=== PATIENT | female | born 1990 | race Caucasian/White ===

== ENCOUNTER 2019-09-18 23:00 | Emergency (ER) | payer SELFPAY ==
[2019-09-18 23:05] VITALS: BP 137/101; PULSE 89; RESP 22; TEMP 36.6; O2SAT 100; BMI 53.8
--- NOTE | 2019-09-18 23:05 | ED_ITS ---
Entered by Renetta Whitehead, acting as scribe for Gladys Hawk HPI - SOB/Dyspnea General: Chief Complaint: Shortness of Breath/Dyspnea Stated Complaint: sob Time Seen by Provider: 09/18/19 23:05 Source: patient Mode of arrival: ambulatory Limitations: no limitations History of Present Illness: HPI Narrative: 29 yo f came to the er pov for shortness of breath. Onset was a week ago. Pt states that she is having a coughing, shaky, sob, sweats and chills. Pt said that this has been going on for about. MD elicited complaint: shortness of breath Onset (ago): week(s) (1 week ago) Severity: mild Exacerbating factors: nothing Relieving factors: nothing Associated symptoms: Reports cough; Deny chest pain or polyuria Treatment prior to arrival: none Related Data: Home oxygen amount: none Review of Systems General: Reports: other (negative unless marked) Const: Reports: chills and night sweats Eyes: Denies: change in vision Card: Denies: chest pain Resp: Reports: shortness of breath and productive cough : Denies: flank pain Musc: Denies: neck pain or back pain Skin/Breast: Denies: rash Neuro: Denies: headache or numbness in extremities Endo: Denies: excessive urination PFSH ED PFSH: Medical History (Updated 09/19/19 @ 00:34 by Gladys Hawk) Cellulitis Cholecystitis with cholelithiasis Seizure Surgical History (Updated 09/18/19 @ 23:32 by Renetta Whitehead) H/O oral surgery H/O rotator cuff surgery H/O shoulder surgery History of dental surgery Social History Smoking and tobacco status: never smoked Physical Exam Const: COMMON NORMALS: no apparent distress, oriented x3, no limitations, healthy appearing and well nourished EXAM LIMITATIONS: no altered mental status GENERAL APPEARANCE: cooperative, well kempt and well developed ORIENTATION/CONSCIOUSNESS: Yes awake HENMT: COMMON NORMALS: normocephalic, head/scalp atraumatic, hearing grossly normal bilaterally, external ears normal, EAC's normal, external nose normal and moist oral mucous membranes HEAD & SCALP: normal to inspection, normocephalic and atraumatic FACE & SINUS: normal facial exam and face symmetric NOSE: external nose normal and nares normal EXTERNAL EAR: Yes external ears normal EXTERNAL AUDITORY CANAL: EAC's normal MOUTH: oral and palatal mucosa normal and tongue normal Eye: COMMON NORMALS: PERRL, EOMs intact bilaterally, conjunctivae normal and no scleral icterus GENERAL EYE: normal appearance of both eyes and normal light reflex CONJUNCTIVA: Yes conjunctivae normal SCLERA: sclerae normal CORNEA: Yes corneas normal PUPIL: Yes PERRL DIRECT OPHTHALMOSCOPY: Yes normal light reflex Neck/C-Spine: COMMON NORMALS: full ROM, no lymphadenopathy, supple, no meningeal signs and no JVD GENERAL: Yes normal visual inspection and Yes trachea midline CERVICAL SPINE: Yes cervical ROM normal Chest: COMMONS NORMALS: inspection of chest normal and palpation of chest normal Resp: COMMON NORMALS: normal respiratory effort, no retractions, no use of accessory muscles and clear to auscultation bilaterally EFFORT & INSPECTION: Yes able to speak in complete sentences AUSCULTATION: clear to auscultation bilaterally Cardio: COMMON NORMALS: no JVD, regular rate, regular rhythm, S1 normal heart sound, S2 normal heart sound, no gallops, no clicks, no murmurs and no rub JUGULAR VENOUS DISTENTION: no JVD RATE: regular rate RHYTHM: regular rhythm HEART SOUNDS: S1 normal and S2 normal GI: COMMON NORMALS: soft to palpation, non-tender, no hepatosplenomegaly and no masses INSPECTION: Yes normal to inspection PALPATION: Yes soft and Yes no hepatosplenomegaly : COMMON NORMALS: Yes no CVA tenderness BLADDER/KIDNEY EXAM: Yes no CVA tenderness Back/Pelvis: COMMON NORMALS: no CVA tenderness, thoracic and lumbar spine normal to inspection, no thoracic nor lumbar tenderness and thoraco-lumbar ROM normal Extremity: COMMON NORMALS: normal to inspection, full ROM, normal capillary refill, no joint enlargement, no clubbing, cyanosis or edema and no calf tenderness Neuro: COMMON NORMALS: oriented x3, CN's II-XII intact bilaterally, moves all extremities, no focal motor deficits and no sensory deficits noted MENINGEAL SIGNS: Yes no meningeal signs Psych: COMMON NORMALS: mental status grossly normal, thought process normal, cooperative, affect normal, speech normal and activity/motor behavior normal APPEARANCE: Yes well kempt SPEECH: Yes normal speech THOUGHT PROCESS: normal thought process Skin: COMMON NORMALS: no rashes or lesions noted, skin turgor normal, no jaundice, no petechiae and no mottling GENERAL SKIN EXAM: no rashes or lesions noted and turgor normal Course Vital Signs: Vital signs: Vital Signs Temperature 97.9 F 09/18/19 23:05 Pulse Rate 89 09/18/19 23:49 Respiratory Rate 18 09/18/19 23:45 Blood Pressure 137/101 09/18/19 23:05 Pulse Oximetry 98 09/18/19 23:45 MDM - SOB/Dyspnea MDM Narrative: Medical decision making narrative: The patient has no infiltrates on chest x-ray and no fever. Per the state algorithm she does not meet criteria for COVID-19 testing. I see no sign of respiratory distress. I will send her home on treatments for bronchitis. Per the patient request we will go ahead and send the COVID-19 test to the [facility]. Lab Data: Attestation: I reviewed the patient's lab results. Labs: Lab Results 09/18/19 Range/Units 23:29 Influenza Type A A g Negative (Negative) POC Influenza B Ag Negative (Negative) Discharge Plan Discharge Patient Disposition: Home, Self-Care Clinical Impression: Bronchitis Condition: Stable Prescriptions: New Zithromax Z-Fausto 250 mg tablet See Rx Instructions .ROUTE .COMPLEX Qty: 6 RF: 0 No Action lamotrigine 200 mg Tablet 200 mg PO BID RF: 0 zonisamide 100 mg Capsule 100 mg PO BID RF: 0 primidone 250 mg Tablet 250 mg PO BID RF: 0 Discharge Orders: Discharge Order (Routine); Ordered 09/19/19 Ordered By: Gladys Hawk Referrals: Leia Brandt DO [Physician] - 1-3 days Discharge Diet: Advance as tolerated Discharge Activity: Increase activity as tolerated Patient Instructions: Bronchitis (Acute) - Adult Activity Restrictions/Additional Instructions: Please return to the ER immediately for any of the signs or symptoms listed on your discharge instruction sheets, worsening/changing of your symptoms, you are not getting better as quickly as expected, or for ANY other cause or concerns. Coding Level of Care Code ED Telecasting Engineer for Chg Fwd Exam Comprehensive The documentation recorded by the [place] shrestha Stephanie Lyn, accurately reflects the service I personally performed and the decisions made by Kenn schaffer Eli N Sep 18, 2019 23:00
--- NOTE | 2019-09-18 23:24 | XRR_ITS ---
PROCEDURE INFORMATION: Exam: XR Chest, 1 View Exam date and time: 09/19/2019 12:03 AM Age: 29 years old Clinical indication: Cough and shortness of breath; Prior surgery; Surgery date: 6+ months; Surgery type: Vns TECHNIQUE: Imaging protocol: XR of the chest Views: 1 view. COMPARISON: CR Chest 1 [place] [id number] 02/04/2019 1:31 PM FINDINGS: Lungs: There is mild indistinctness of the pulmonary vasculature and some increased interstitial markings seen predominately the lower hemithoraces, findings that could represent mild pulmonary edema. Superimposed basilar pneumonitis cannot be entirely excluded. Pleural space: Unremarkable. No pleural effusion. No pneumothorax. Heart/Mediastinum: Unremarkable. No cardiomegaly. Bones/joints: Unremarkable. Other findings: A vagus neurostimulator is seen on the left. XR/XR chest 1V portable [id number] IMPRESSION: Mild indistinctness of the pulmonary vasculature and some increased interstitial markings in the lower hemithoraces may represent pulmonary edema although superimposed basilar pneumonitis cannot be excluded.
[2019-09-18 23:45] VITALS: PULSE 89; RESP 18; O2SAT 98
[2019-09-18] MEDS: ipratropium-albuterol 3 mL Neb 9 ML INHALATION (23:45)
[2019-09-18 23:49] VITALS: PULSE 89
[2019-09-18 23:58] LABS: Influenza A by IFA Negative (Negative); Influenza B by IFA Negative (Negative)
[2019-09-19] MEDS: acetaminophen 500 mg Tablet 1000 MG PO (00:14)
[2019-09-19 01:36] VITALS: RESP 18
[2019-09-21 08:59] LABS: Coronavirus Overall Results NOT DETECTED; Coronavirus Qual PCR Source NOT GIVEN; Patient Symptomatic? NOT GIVEN; SARS-CoV-2 RNA: NEGATIVE
[2019-09-21 09:00] LABS: Pan-SARS RNA: NEGATIVE
== END 2019-09-19 01:36 | disposition home or self-care (01) ==
PROVIDERS: Emergency Provider Emergency Medicine
DX: J40 Bronchitis, not specified as acute or chronic (principal)
CPT/HCPCS: 12345; 71045; 87635; 87804; 94640; 99282; 99283

== ENCOUNTER 2019-10-11 16:04 | Emergency (ER) | payer SELFPAY | END 2019-10-11 16:15 | disposition left against medical advice (07) | LOC: ER 16:21 | DX: Z53.29 Procedure and treatment not carried out because of patient's decision for other reasons (principal); R56.9 Unspecified convulsions | CPT/HCPCS: 99281 ==

== ENCOUNTER 2020-03-22 17:47 | Emergency (ER) | payer SELFPAY ==
[2020-03-22 17:52] VITALS: BP 152/98; PULSE 79; RESP 16; TEMP 36.7; O2SAT 100; BMI 49.9
--- NOTE | 2020-03-22 18:03 | ED_ITS ---
HPI - Neuro Symptoms/Deficit General: Chief Complaint: Extremity Problem,Nontraumatic Stated Complaint: fingers tingling Time Seen by Provider: 03/22/20 18:03 History of Present Illness: HPI Narrative: Patient is a 29-year-old female who comes to the ED with left fifth digit numbness/tingling sensation. Patient says symptoms started approximately 2 to 3 days ago. Patient has a job where she uses her hands constantly and says she noticed about 3 days ago a tingling sensation of left hand. She denies any other symptoms or injury to left hand. Denies headache, head trauma, vision changes, numbness tingling to face or weakness to face, weakness to extremities. Associated symptoms: Deny chest pain, headache(s), nausea or vomiting Review of Systems Const: Denies: fever(s), chills or fatigue Eyes: Denies: change in vision or eye discomfort ENMT: Denies: throat pain, odynophagia, nasal discharge or nasal congestion Card: Denies: chest pain, palpitations, edema, swelling of feet/ankles, dyspnea on exertion or orthopnea Resp: Denies: dyspnea, productive cough or non-productive cough GI: Denies: abdominal pain, nausea, vomiting, diarrhea, constipation or hematochezia : Denies: flank pain, dysuria or hematuria Musc: Reports: extremity pain (Left fifth digit tingling sensation?no pain); Denies: neck pain, back pain or extremity swelling Skin/Breast: Denies: rash or new lesions Neuro: Denies: headache(s), numbness in extremities or weakness in extremities [facility] ED PFSH: Medical History Cellulitis Cholecystitis with cholelithiasis Seizure Surgical History H/O oral surgery H/O rotator cuff surgery H/O shoulder surgery History of dental surgery Social History Smoking and tobacco status: current every day smoker e-cigarettes Current gender identity: Female Female Reproductive History: Date of last menstrual period: 02/20/20 Physical Exam Const: COMMON NORMALS: no acute distress, patient oriented x3, healthy appearing and alert GENERAL APPEARANCE: cooperative and comfortable HENMT: COMMON NORMALS: normocephalic HEAD & SCALP: normocephalic MOUTH: Normal oral and palatal mucosa present THROAT: posterior oropharynx normal and uvula midline Eye: COMMON NORMALS: Equal, round and reactive pupils present, EOMs intact bilaterally and normal visual childers by confrontation PUPIL: Yes Equal, round and reactive pupils present Neck/C-Spine: COMMON NORMALS: supple GENERAL: Yes normal visual inspection Resp: COMMON NORMALS: normal respiratory effort, No retractions, No use of accessory muscles and clear to auscultation bilaterally AUSCULTATION: clear to auscultation bilaterally Cardio: COMMON NORMALS: regular rate, regular rhythm, S1 normal heart sound present, S2 normal heart sound present, No gallops present (Cardio), No clicks present (Cardio), No murmurs present (Cardio) and Peripheral pulses 2+ throughout RATE: regular rate RHYTHM: regular rhythm HEART SOUNDS: S1 normal heart sound present and S2 normal heart sound present PERIPHERAL PULSES: Peripheral pulses 2+ throughout GI: COMMON NORMALS: Normal to inspection, nondistended, normoactive bowel sounds present, Soft to palpation, non-tender and no masses PALPATION: Yes Soft to palpation : COMMON NORMALS: Yes no CVA tenderness BLADDER/KIDNEY EXAM: Yes no CVA tenderness Back/Pelvis: COMMON NORMALS: no CVA tenderness Extremity: COMMON NORMALS: normal to inspection LEFT UPPER EXTREMITY: Yes wrist Left wrist: Yes special tests Left wrist special tests: Phalen's test: Positive (left wrist) Neuro: COMMON NORMALS: patient oriented x3, CN's II-XII intact bilaterally, moves all extremities, no focal motor deficits and no sensory deficits noted SENSORIUM/ORIENTATION: Yes alert SPEECH: speech normal MOTOR EXAM: 5/5 motor strength present throughout Skin: COMMON NORMALS: no rashes or lesions noted GENERAL SKIN EXAM: no rashes or lesions noted and dry skin Course Vital Signs: Vital signs: Vital Signs Temperature 98.0 F 03/22/20 17:52 Pulse Rate 79 03/22/20 17:52 Respiratory Rate 16 03/22/20 17:52 Blood Pressure 152/98 03/22/20 17:52 Pulse Oximetry 100 03/22/20 17:52 MDM - Neuro Symptoms/Deficit MDM Narrative: Medical decision making narrative: Patient is a 29-year-old female comes to the ED with left fifth digit numbness/tingling sensation. Patient currently has a job where she does a lot of work with her hands. Physical exam was remarkable for positive balance test. Neuro exam was normal and showed no deficits. Patient diagnosed with carpal tunnel syndrome on left hand and told to take ibuprofen, rest and apply cold pack on left wrist to help with symptoms. Patient told to follow-up with her PCP in the next 7 to 10 days for reevaluation. Return to ED precautions given. Patient understood and agreed with plan. Discharge Plan Discharge Patient Disposition: Home Clinical Impression: Carpal tunnel syndrome Qualifiers: Laterality: left Qualified Code(s): G56.02 - Carpal tunnel syndrome, left upper limb Condition: Stable Prescriptions: No Action duloxetine [Cymbalta] 60 mg capsule,delayed release(DR/EC) 60 mg PO DAILY Qty: 30 RF: 2 ibuprofen 800 mg tablet 800 mg PO TID PRN (Reason: pain) Qty: 20 RF: 0 triamcinolone acetonide 0.1 % cream 1 applic TOPICAL BID Qty: 80 RF: 0 prednisone 20 mg tablet 40 mg PO DAILY 5 Days Qty: 10 RF: 0 zonisamide 100 mg capsule 400 mg PO DAILY Qty: 120 RF: 2 lamotrigine 200 mg tablet 200 mg PO BID Qty: 60 RF: 3 primidone 250 mg tablet 250 mg PO BID Qty: 60 RF: 0 Discharge Orders: Discharge Order (Routine); Ordered 03/22/20 Ordered By: Yovanny iRbeiro Discharge Diet: Regular Discharge Activity: Increase activity as tolerated Patient Instructions: Carpal Tunnel Syndrome (ED) Activity Restrictions/Additional Instructions: Follow-up with medical provider as directed in 7-10 days. Take [id number] ibuprofen up to 800 mg every 8 hours to help with pain and inflammation. Ice and rest left wrist to help with symptoms as well. Return to the ER or your medical provider if condition worsens. Please read and understand discharge instructions. If any questions, please ask. Discharge Date/Time: 03/22/20 18:25 Coding Level of Care Code ED Extruding Department Supervisor for Cordelia Loja Exam Comprehensive
== END 2020-03-22 18:25 | disposition home or self-care (01) ==
PROVIDERS: Emergency Provider Physician Assistant
DX: G56.02 Carpal tunnel syndrome, left upper limb (principal); F17.290 Nicotine dependence, other tobacco product, uncomplicated
CPT/HCPCS: 12345; 99281

== ENCOUNTER → 2020-07-27 09:46 | Outpatient (BNVA) | payer SELFPAY | PROVIDERS: Visit Provider Specialist | DX: G40.909 Epilepsy, unspecified, not intractable, without status epilepticus (principal); F41.1 Generalized anxiety disorder; F43.12 Post-traumatic stress disorder, chronic; G25.0 Essential tremor | CPT/HCPCS: 95971; 99214 ==

== ENCOUNTER 2020-08-05 16:02 | Emergency (ER) | payer SELFPAY ==
[2020-08-05 16:04] VITALS: BP 174/114; PULSE 92; RESP 18; TEMP 36.6; O2SAT 98; BMI 49.9
--- NOTE | 2020-08-05 16:19 | ECG_ITS ---
[facility] Test Date: 2020-08-05 Pat Name: Lia Artis Department: Room: Gender: Female Channel Business Manager: : 1990 Requested By: Lucas Norton Order Number: [id number] Haylee MD: Manuel Rivera M.D. Measurements Intervals [place] Rate: 74 P: 39 DE: 162 QRS: 10 QRSD: 90 T: 13 QT: 335 QTc: 372 Interpretive Statements SINUS RHYTHM POSSIBLE ANTERIOR MYOCARDIAL INFARCTION , PROBABLY OLD [30 ms Q WAVE IN V3/V4, OR R < 0.2 mV IN V4] Compared to ECG 02/04/2019 14:08:05 T-wave abnormality no longer present Possible ischemia no longer present Myocardial infarct finding still present Electronically Signed On 08-06-2020 10:54:34 CHERRY CUTTER by Manuel Rivera M.D. [email or web address]
--- NOTE | 2020-08-05 16:19 | CTR_ITS ---
PROCEDURE INFORMATION: Exam: CT Cervical Spine Without Contrast Exam date and time: 08/05/2020 4:26 PM Age: 30 years old Clinical indication: Injury or trauma; Blunt trauma; Patient HX: Seizure activity causing fall down 5 steps abrasion to R side yazidi C/O L shoulder pain; Additional info: Pain, fall TECHNIQUE: Imaging protocol: Computed tomography images of the cervical spine without contrast. Axial, coronal and sagittal reformatted images were created and reviewed. Radiation optimization: All CT scans at this facility use at least one of these dose optimization techniques: automated exposure control; mA and/or kV adjustment per patient size (includes targeted exams where dose is matched to clinical indication); or iterative reconstruction. COMPARISON: CT neck w con* [id number] 02/25/2019 3:14 PM RADIATION DOSE METRICS: Total DLP (mGy-cm): 735.56 FINDINGS: Bones/joints: Straightening of the normal cervical lordosis. No CT evidence of acute fracture, dislocation or subluxation. Alignment anatomic. Dextroscoliosis. Vertebral body heights maintained. Discs/Spinal canal/Neural foramina: Intervertebral disc spaces preserved. No significant spinal canal or neural foraminal stenosis. Lungs: Grossly unremarkable. Soft tissues: Grossly unremarkable. CT/CT cervical spin wo con* [id number] IMPRESSION: 1[address] No CT evidence of acute cervical spine traumatic injury. 2. Additional findings, as above. Radiation Dose CTDIVOL = (mGy): DLP = 735.56 (mGy-cm)
--- NOTE | 2020-08-05 16:21 | CTR_ITS ---
PROCEDURE INFORMATION: Exam: CT Head Without Contrast Exam date and time: 08/05/2020 4:26 PM Age: 30 years old Clinical indication: Injury or trauma; Abrasion and blunt trauma (contusions or hematomas); Consciousness not specified; Head, generalized; Patient HX: Seizure activity causing fall down 5 steps abrasion to R side orthodoxy C/O L shoulder pain TECHNIQUE: Imaging protocol: Computed tomography of the head without contrast. Axial, coronal and sagittal reformatted images were created and reviewed. Radiation optimization: All CT scans at this facility use at least one of these dose optimization techniques: automated exposure control; mA and/or kV adjustment per patient size (includes targeted exams where dose is matched to clinical indication); or iterative reconstruction. COMPARISON: No relevant prior studies available. RADIATION DOSE METRICS: Total DLP (mGy-cm): 1436.04 FINDINGS: Brain: No CT evidence of acute intracranial hemorrhage or acute territorial infarction. No significant mass effect or midline shift. Basal cisterns patent. Cerebral ventricles: Normal in size and configuration. Bones/joints: No acute osseous abnormality. Paranasal sinuses: Minimal ethmoid mucosal thickening. Mastoid air cells: Grossly unremarkable. Soft tissues: Grossly unremarkable. CT/CT head wo con* [id number] IMPRESSION: 1. No CT evidence of acute intracranial pathology. 2. Additional findings, as above. Radiation Dose CTDIVOL = (mGy): DLP = 1436.04 (mGy-cm)
--- NOTE | 2020-08-05 16:38 | XRR_ITS ---
PROCEDURE INFORMATION: Exam: XR Left Scapula Exam date and time: 08/05/2020 5:07 PM Age: 30 years old Clinical indication: Injury or trauma; Fall; Blunt trauma (contusions or hematomas); Shoulder; Left; Additional info: Pain TECHNIQUE: Imaging protocol: XR Left scapula, complete. COMPARISON: CR XR chest 1V portable [id number] 09/18/2019 11:50 PM FINDINGS: Bones/joints: Negative for acute bony abnormality. Soft tissues: Electronic stimulator left anterior chest XR/[place] [id number] IMPRESSION: No acute findings.
[2020-08-05 16:40] VITALS: O2SAT 95
[2020-08-05] MEDS: ketorolac 30 mg/mL INJ 60 MG IM (16:40)
--- NOTE | 2020-08-05 16:56 | ED_ITS ---
HPI - Fall General: Chief Complaint: Fall Stated Complaint: L ARM INJURY/PAIN Time Seen by Provider: 08/05/20 16:18 History of Present Illness: HPI Narrative: 30-year-old female presents to the emergency room with complaint of having had a seizure and falling down the stairs. She is has a history of known seizures and has had them a little bit more often lately. The seizure itself lasted about 3 minutes she fell down 5 stairs she is got complaint of pain in her left arm particularly in the shoulder and scapula area clavicle is exquisitely tender to touch. She usually sees Dr. Queen she is on several seizure medication she denies any change in med ications recently she is not missed any medication she attributes his seizures to being excessively tired and emotionally stressed recently. MD complaint: fall Onset (ago): minute(s) Fall from: down stairs (#) (5) Fall witnessed: yes, by family Place fall occurred: home Loss of consciousness: Unsure Prolonged down time: no Context: seizure Location of injury - extremities: Left: shoulder Severity: moderate Quality: sharp Associated symptoms-after fall: Denies abdominal pain, chest pain, confusion, difficulty walking, headache(s), hematuria, lightheadedness, numbness, short of breath, vertigo or weakness Review of Systems Const: Denies: fever(s), chills, body aches, change in appetite, fatigue or malaise ENMT: Denies: throat pain, ear or mastoid pain, nasal discharge or nasal congestion Card: Denies: chest pain or lightheadedness Resp: Denies: dyspnea, productive cough or non-productive cough GI: Denies: abdominal pain : Denies: hematuria Skin/Breast: Denies: rash or pruritus Neuro: Denies: headache(s), difficulty walking, vertigo or confusion PFS ED PFSH: Medical History (Updated 08/05/20 @ 18:36 by Lucas Quinteros DO) Cellulitis Cholecystitis with cholelithiasis Seizure Surgical History H/O oral surgery H/O rotator cuff surgery H/O shoulder surgery History of dental surgery Social History Smoking and tobacco status: former smoker Current gender identity: Female Female Reproductive History: Date of last menstrual period: 08/05/20 Physical Exam Const: COMMON NORMALS: no acute distress GENERAL APPEARANCE: cooperative and comfortable ORIENTATION/CONSCIOUSNESS: Yes awake, Yes oriented to person, Yes oriented to place and Yes oriented to time HENMT: COMMON NORMALS: normocephalic, atraumatic and hearing grossly normal bilaterally HEAD & SCALP: normocephalic and atraumatic Eye: COMMON NORMALS: Equal, round and reactive pupils present, EOMs intact bilaterally, conjunctivae normal and no scleral icterus CONJUNCTIVA: Yes conjunctivae normal PUPIL: Yes Equal, round and reactive pupils present Neck/C-Spine: COMMON NORMALS: no JVD Resp: COMMON NORMALS: normal respiratory effort, No retractions, No use of accessory muscles and clear to auscultation bilaterally AUSCULTATION: clear to auscultation bilaterally Cardio: COMMON NORMALS: no JVD, regular rate, regular rhythm and No murmurs present (Cardio) RATE: regular rate RHYTHM: regular rhythm GI: COMMON NORMALS: Soft to palpation and No hepatosplenomegaly present AUSCULTATION: Yes normoactive bowel sounds PALPATION: Yes Soft to palpation, No Tenderness to palpation present (GI), No Guarding due to palpation present (GI) and Yes No hepatosplenomegaly present Extremity: NARRATIVE EXTREMITY EXAM: Patient is cradling left arm against her chest splinting and she is neurovascularly intact. Pain particularly in the distal portion of the clavicle with any attempts to move at the shoulder joint. There is no obvious deformity. Neuro: SENSORIUM/ORIENTATION: Yes oriented to person, Yes oriented to place and Yes oriented to time Skin: COMMON NORMALS: no rashes or lesions noted GENERAL SKIN EXAM: no rashes or lesions noted Course Vital Signs: Vital signs: Vital Signs Temperature 97.8 F 08/05/20 16:04 Pulse Rate 65 08/05/20 18:44 Respiratory Rate 18 08/05/20 16:04 Blood Pressure 120/82 08/05/20 18:44 Pulse Oximetry 100 08/05/20 18:44 MDM - Fall MDM Narrative: Medical decision making narrative: Suspect she may have a traumatic rotator cuff injury the way she is cradling her arm there is no acute fractures in the clavicle scapula or shoulder. There is no dislocation put her in an arm sling and discharge her home keep in the arm sling do not remove until she sees orthopedics will have case management set that up. Should also follow- up with Dr. Queen for the recurrent seizures she has been having. Lab Data: Labs: Lab Results 08/05/20 08/05/20 08/05/20 Range/Units 16:40 16:40 18:34 WBC 8.2 (4.0-10.0) 10^3/ uL RBC 4.10 (4.1-5.3) 10^6/u L Hgb 13.5 (11.5-15.3) g/dL Hct 42.0 (37.0-47.0) % MCV 102.4 H (81-99) fL MCH 32.9 (28.0-34.0) pg MCHC 32.1 (30.0-36.0) g/dL RDW 12.0 L (12.1-15.1) % Plt Count 312 (130-400) 10^3/c mm MPV 9.8 (7.4-10.4) fL Neut % (Auto) 69.8 % Lymph % (Auto) 21.4 % [place] % (Auto) 5.5 % Eos % (Auto) 2.9 % Baso % (Auto) 0.2 % Neut # (Auto) 5.71 (1.8-7.7) 10^3/u L Lymph # (Auto) 1.8 (0.8-4.8) 10^3/u L [place] # (Auto) 0.5 (0.2-0.9) 10^3/u L Eos # (Auto) 0.2 (0.0-0.8) 10^3/u L Baso # (Auto) 0.0 (0.0-0.1) 10^3/u L Nucleated RBC % (a uto) 0 % Nucleated RBCs # 0.0 /100WBC Sodium 140 (136-145) mmol/L Potassium 4.1 (3.5-5.1) mmol/L Chloride 107 (98-107) mmol/L Carbon Dioxide 26 (22-29) mmol/L Anion Gap 11.1 (5-19) BUN 9 (6-20) mg/dL Creatinine 0.7 (0.5-0.9) mg/dL GFR Calculation 98.3 (90-130) mL/min Glucose 88 (65-115) mg/dL Calculated Osmolal ity 288 (285-295) mOsm/k g Calcium 8.7 (8.5-10.5) mg/dL Magnesium 2.0 (1.7-2.3) mg/dL Total Bilirubin 0.2 (0.15-1.2) mg/dL AST 17 (0-32) U/L ALT 13 (0-33) U/L Alkaline Phosphata se 121 H (35-105) IU/L Total Protein 6.8 (6.6-8.7) g/dL Albumin 3.8 (3.5-5.2) g/dL Globulin 3.0 (1.3-4.6) g/dL Urine Color Yellow (Yellow) Urine Appearance Cloudy (CLEAR) Urine pH 7 (5-7) Ur Specific Gravit y 1.010 (1.005-1.030) Urine Protein Neg (Negative) Urine Glucose (UA) Norm (Normal) Urine Ketones Negative (Negative) Urine Blood Neg (Negative) Urine Nitrate Positive H (Negative) Urine Bilirubin Neg (Negative) Urine Urobilinogen Norm (Negative) mg/dL Ur Leukocyte Keren ase Negative (Negative) Urine RBC 0-4 H (0-2) /hpf Urine WBC 5-10 H (0-5) /hpf Ur Squamous Epith Cells 0-4 H (0-5) /hpf Amorphous Sediment 4+ /hpf Urine Bacteria 3+ H (NONE) /hpf Discharge Plan Discharge Patient Disposition: Home Clinical Impression: Seizure, Fall Condition: Stable Prescriptions: New hydrocodone-acetaminophen 5-325 mg tablet 1 tab PO Q6H PRN (Reason: pain) Qty: 15 RF: 0 No Action lamotrigine 200 mg tablet 200 mg PO BID Qty: 60 RF: 5 primidone 250 mg tablet 250 mg PO BID Qty: 60 RF: 5 trazodone 50 mg tablet 100 mg PO BEDTIME PRN (Reason: Sleep) RF: 0 zonisamide 100 mg capsule 200 mg PO BID RF: 0 Cymbalta 30 mg capsule,delayed release(DR/EC) 30 mg PO QAM RF: 0 Cymbalta 60 mg capsule,delayed release(DR/EC) 60 mg PO QAM RF: 0 Discharge Orders: Discharge ED (Routine); Ordered 08/05/20 Ordered By: Lucas Quinteros Discharge Diet: Usual diet Discharge Activity: Increase activity as tolerated Activity Restrictions/Additional Instructions: Wear sling. Follow-up with your primary care doctor if not improving. Coding Level of Care Code ED Automation Application Engineer for Cordelia Fwd Exam Comprehensive
[2020-08-05 17:03] LABS: Basophils % 0.2 %; Eosinophils # 0.2 10^3/uL (0.0-0.8); Eosinophils % 2.9 %; Hemoglobin 13.5 g/dL (11.5-15.3); Lymphocytes # 1.8 10^3/uL (0.8-4.8); Lymphocytes % 21.4 %; Mean Corpuscular HGB Conc 32.1 g/dL (30.0-36.0); Mean Corpuscular Hemoglobin 32.9 pg (28.0-34.0); Mean Corpuscular Volume 102.4 fL (81-99); Mean Platelet Volume 9.8 fL (7.4-10.4); Monocytes # 0.5 10^3/uL (0.2-0.9); Monocytes % 5.5 %; Neutrophils # 5.71 10^3/uL (1.8-7.7); Neutrophils % 69.8 %; Nucleated Red Blood Cells % 0 %; Platelet Count 312 10^3/cmm (130-400); White Blood Count 8.2 10^3/uL (4.0-10.0)
[2020-08-05 17:15] LABS: Alanine Aminotransferase 13 U/L (0-33); Albumin Level 3.8 g/dL (3.5-5.2); Alkaline Phosphatase 121 IU/L (35-105); Blood Urea Nitrogen 9 mg/dL (6-20); Calcium 8.7 mg/dL (8.5-10.5); Carbon Dioxide 26 mmol/L (22-29); Chloride 107 mmol/L (98-107); Glomerular Filtration Rate 98.3 mL/min (90-130); Glucose 88 mg/dL (65-115); Osmolality Calculated 288 mOsm/kg (285-295); Sodium 140 mmol/L (136-145); Total Bilirubin 0.2 mg/dL (0.15-1.2); Total Protein 6.8 g/dL (6.6-8.7)
[2020-08-05 17:21] LABS: Anion Gap 11.1 (5-19); Aspartate Amino Transferase 17 U/L (0-32); Potassium 4.1 mmol/L (3.5-5.1)
--- NOTE | 2020-08-05 17:32 | XRR_ITS ---
PROCEDURE INFORMATION: Exam: XR Left Shoulder Exam date and time: 08/05/2020 5:36 PM Age: 30 years old Clinical indication: Injury or trauma; Blunt trauma (contusions or hematomas); Arm, upper; Injury details: Left arm pain, fall; Patient HX: Best possible images. PT limited rom couldn't move. TECHNIQUE: Imaging protocol: XR Left shoulder. Views: 2 or more views. COMPARISON: No relevant prior studies available. FINDINGS: Bones/joints: No radiographic evidence of acute fracture or dislocation. Alignment anatomic. Joint spaces preserved. Soft tissues: Grossly unremarkable. XR/XR shoulder LT min 2V* [id number] IMPRESSION: No acute radiographic findings.
--- NOTE | 2020-08-05 17:32 | XRR_ITS ---
PROCEDURE INFORMATION: Exam: XR Left Humerus Exam date and time: 08/05/2020 5:36 PM Age: 30 years old Clinical indication: Injury or trauma; Blunt trauma (contusions or hematomas); Arm, upper; Patient HX: Left arm pain, fall. Best possible images. PT limited rom couldn't move. TECHNIQUE: Imaging protocol: XR Left humerus Views: 2 or more views. COMPARISON: No relevant prior studies available. FINDINGS: Bones/joints: No radiographic evidence of acute fracture or dislocation. Alignment anatomic. Joint spaces preserved. Soft tissues: Grossly unremarkable. XR/[place] [id number] IMPRESSION: No acute radiographic findings.
--- NOTE | 2020-08-05 17:32 | XRR_ITS ---
PROCEDURE INFORMATION: Exam: XR Left Clavicle, Complete Exam date and time: 08/05/2020 5:36 PM Age: 30 years old Clinical indication: Injury or trauma; Fall; Blunt trauma (contusions or hematomas); Arm, upper; Injury details: Left arm pain, limited rom. Best images possible TECHNIQUE: Imaging protocol: XR Left clavicle complete. Any number of views. COMPARISON: [place] [id number] 08/05/2020 5:03 PM FINDINGS: Bones/joints: No radiographic evidence of acute fracture or dislocation. Alignment anatomic. Joint spaces preserved. Soft tissues: Grossly unremarkable. XR/[place] [id number] IMPRESSION: No acute radiographic findings.
[2020-08-05 17:47] VITALS: BP 95/76; PULSE 79; O2SAT 99
[2020-08-05 18:44] VITALS: BP 120/82; PULSE 65; O2SAT 100
[2020-08-05 19:02] LABS: Add Urine Culture? Yes; Add Urine Microscopic? YES; Amorphous Sediment Urine 4+ /hpf; Bacteria Urine 3+ /hpf; Bilirubin Urine Neg (Negative); Blood Urine Neg (Negative); Glucose Urine UA Norm (Normal); Ketones Urine Negative (Negative); Leukocyte Esterase Urine Negative (Negative); Nitrate Urine Positive (Negative); Protein Urine Neg (Negative); RBC Urine 0-4 /hpf (0-2); Squamous Epithelial Cell Urine 0-4 /hpf (0-5); Urine Appearance Cloudy (CLEAR); Urine Color Yellow (Yellow); Urobilinogen Urine Norm (Negative); pH Urine 7 (5-7)
--- NOTE | 2020-08-08 09:16 | DCPLANNER ---
fabrication manager had message to schedule a follow up appointment for patient with ortho. fabrication manager called the ortho clinic, spoke with Karishma, gave clinic patients information. fabrication manager was told that patients information would be printed and reviewed. Clinic will call patient with appointment information.
--- NOTE | 2020-08-10 10:54 | DCPLANNER ---
Patient has a follow up appointment scheduled for , August 11, 2020 at 11:[address] Galan. Clinic will call patient with appointment information.
[2020-08-11 21:24] LABS: Lamotrigine (Lamictal) Level 6.3 mcg/mL (4.0-18.0)
--- NOTE | 2020-09-21 13:02 | DCPLANNER ---
Patient had a follow up appointment scheduled for 08.11.20 with ortho - appointment cancelled.
== END 2020-08-05 18:44 | disposition home or self-care (01) ==
PROVIDERS: Emergency Provider Family Medicine
DX: R56.9 Unspecified convulsions (principal); W10.8XXA Fall (on) (from) other stairs and steps, initial encounter; Z87.891 Personal history of nicotine dependence
CPT/HCPCS: 12345; 70450; 72125; 73000; 73010; 73030; 73060; 80053; 80175; 81001; 83735; 85025; 87077; 87086; 87186; 93005; 96372; 99283; 99284; J1885

== ENCOUNTER → 2020-08-09 11:34 | Outpatient (BNVA) | payer SELFPAY | PROVIDERS: Visit Provider Thoracic Surgery (Cardiothoracic Vascular Surgery) | DX: Z20.822 Contact with and (suspected) exposure to COVID-19 (principal) | CPT/HCPCS: 87635 ==

== ENCOUNTER 2020-08-15 06:03 | Day surgery (SDC) | payer SELFPAY ==
[2020-08-09 10:15] VITALS: BMI 49.9
[2020-08-09 11:08] LABS: Urine Appearance Clear (CLEAR); Urine Color Yellow (Yellow)
[2020-08-09 11:09] LABS: Add Urine Culture? No; Add Urine Microscopic? YES; Bacteria Urine 3+ /hpf; Bilirubin Urine 1+ (Negative); Blood Urine Neg (Negative); Glucose Urine UA Norm (Normal); Ketones Urine Negative (Negative); Leukocyte Esterase Urine Trace (Negative); Nitrate Urine Positive (Negative); Protein Urine Neg (Negative); RBC Urine 0-4 /hpf (0-2); Urobilinogen Urine Norm (Negative); WBC Urine 15-25 /hpf (0-5); pH Urine 5 (5-7)
[2020-08-09 11:13] LABS: Basophils # 0.1 10^3/uL (0.0-0.1); Basophils % 0.8 %; Eosinophils # 0.3 10^3/uL (0.0-0.8); Eosinophils % 4.2 %; Hematocrit 42.9 % (37.0-47.0); Hemoglobin 13.8 g/dL (11.5-15.3); Lymphocytes # 2.5 10^3/uL (0.8-4.8); Lymphocytes % 35.6 %; Mean Corpuscular HGB Conc 32.2 g/dL (30.0-36.0); Mean Corpuscular Hemoglobin 32.6 pg (28.0-34.0); Mean Corpuscular Volume 101.4 fL (81-99); Mean Platelet Volume 9.7 fL (7.4-10.4); Monocytes # 0.5 10^3/uL (0.2-0.9); Monocytes % 6.9 %; Neutrophils # 3.69 10^3/uL (1.8-7.7); Neutrophils % 52.2 %; Nucleated Red Blood Cells % 0 %; Platelet Count 316 10^3/cmm (130-400); Red Blood Count 4.23 10^6/uL (4.1-5.3); Red Cell Distribution Width 11.9 % (12.1-15.1); White Blood Count 7.1 10^3/uL (4.0-10.0)
[2020-08-09 11:18] LABS: Anion Gap 13.5 (5-19); Blood Urea Nitrogen 9 mg/dL (6-20); Calcium 8.9 mg/dL (8.5-10.5); Carbon Dioxide 22 mmol/L (22-29); Chloride 109 mmol/L (98-107); Glomerular Filtration Rate 98.3 mL/min (90-130); Glucose 85 mg/dL (65-115); Osmolality Calculated 290 mOsm/kg (285-295); Potassium 3.5 mmol/L (3.5-5.1); Sodium 141 mmol/L (136-145)
--- NOTE | 2020-08-09 20:23 | ANES.PREANE2 ---
Pre-Anesthetic Assessment Pre-Anesthetic Assessment: Height/Weight: Height 1.65 m Weight 136.078 kg Preop Diagnosis: Vagal nerve stimulator generator end of service Proposed Procedure: Operation Date: 08/15/20 08:30 Proposed Procedures p Vagus nerve battery exchange(Not Applicable) - South Bone MD Was Beta Annette taken within 24 hours: N/A Social: Social History: No alcohol and No tobacco Exam: Pre-Anes Outpt Exam: alert, oriented x 3, clear to auscultation bilaterally and regular rate & rhythm Airway: Submandibular: WNL Cervical ROM: WNL MP: 2 Additional comments: poor dentition, multiple caries Metabolic: Metabolic: Morbid obesity Neuropsych: Neuropsych: Anxiety, Depression and Seizure (VNS well controlled) Comments: PTSD Anesthetic Plan: ASA status: 3 Anesthesia: General Risk of > 500 ml blood loss (7ml/kg in children): No PFSH Anesthesia PFSH: Medical History (Updated 08/05/20 @ 18:36 by Lucas Quinteros DO) Cellulitis Cholecystitis with cholelithiasis Seizure Surgical History H/O oral surgery H/O rotator cuff surgery H/O shoulder surgery History of dental surgery Social History Smoking and tobacco status: former smoker Current gender identity: Female Female Reproductive History: Date of last menstrual period: 08/02/20 Data Anesthesia CBC & Chem 7: 08/09/20 10:35 08/09/20 10:35 Other Labs: Laboratory Results - last 48 hr 08/09/20 08/09/20 08/09/20 10:30 10:35 10:35 WBC 7.1 RBC 4.23 Hgb 13.8 Hct 42.9 MCV 101.4 H MCH 32.6 MCHC 32.2 RDW 11.9 L Plt Count 316 MPV 9.7 Neut % (Auto) 52.2 Lymph % (Auto) 35.6 [place] % (Auto) 6.9 Eos % (Auto) 4.2 Baso % (Auto) 0.8 Neut # (Auto) 3.69 Lymph # (Auto) 2.5 [place] # (Auto) 0.5 Eos # (Auto) 0.3 Baso # (Auto) 0.1 Nucleated RBC % (auto) 0 Nucleated RBCs # 0.0 Sodium 141 Potassium 3.5 Chloride 109 H Carbon Dioxide 22 Anion Gap 13.5 BUN 9 Creatinine 0.7 GFR Calculation 98.3 Glucose 85 Calculated Osmolality 290 Calcium 8.9 Urine Color Yellow Urine Appearance Clear Urine pH 5 Ur Specific Bailey 1.020 Urine Protein Neg Urine Glucose (UA) Norm Urine Ketones Negative Urine Blood Neg Urine Nitrate Positive H Urine Bilirubin 1+ H Urine Urobilinogen Norm Ur Leukocyte Esterase Trace H Urine RBC 0-4 H Urine WBC 15-25 H Ur Squamous Epith Cells 10-15 H Amorphous Sediment Not Reportable Urine Bacteria 3+ H Cardiac Studies: No Data to Display
--- NOTE | 2020-08-15 06:12 | XR_ITS ---
WS: [id number] CHEST 2 VIEWS HISTORY: Vagal nerve stimulator generator exchange COMPARISON: 09/18/2019 Lungs: Clear with no abnormality. No pleural effusion or pneumothorax. Cardiac size: Normal. Mediastinum/Aorta: Vagal nerve stimulator generator projects over the central LEFT lung. There is a w roosevelt extending superiorly over the LEFT thorax with electrodes in the LEFT lateral neck soft tissues. Bones: Normal. XR/XR chest 2V* [id number] IMPRESSION: 1. No acute cardiopulmonary disease. 2. Vagal nerve stimulator projects over the LEFT thorax.
[2020-08-15 06:30] VITALS: BP 156/93; PULSE 82; RESP 18; TEMP 36.2; O2SAT 98
[2020-08-15 06:43] LABS: OR HCG Qualitative Urine Negative (Negative)
--- NOTE | 2020-08-15 06:45 | P.ANESUD_ITS ---
Pre-Anesthetic Update Pre-Anesthetic Assessment: Date of Surgery/Procedure: 08/15/20 Preop Amalia gnosis: Vagal nerve stimulator generator end of service Proposed Procedure: Operation Date: 08/15/20 07:00 Proposed Procedures p Vagus nerve battery exchange(Not Applicable) - South Bone MD Any changes to Pre-Anesthetic Assessment?: No Last Intake: Intake Last Liquid Date 08/14/20 Last Liquid Time 23:30 Last Solid Date 08/14/20 Last Solid Time 21:00 Labs Last 48hrs: Laboratory Results - last 48 hr 08/15/20 06:16 Urine HCG, Qual Negative Vitals: Temperature 97.1 F L 08/15/20 06:30 Temperature Source Temporal Artery S can 08/15/20 06:30 Pulse Rate 82 08/15/20 06:30 Pulse Rhythm 08/15/20 06:30 Pulse Strength 3+ Normal 08/15/20 06:30 Respiratory Rate 18 08/15/20 06:30 Blood Pressure 156/93 08/15/20 06:30 Blood Pressure Saranya n 114 08/15/20 06:30 Pulse Oximetry 98 08/15/20 06:30 Oxygen Delivery Me thod 08/15/20 06:30 Exam: Pre-Anes Outpt Exam: alert, oriented x 3, clear to auscultation bilaterally and regular rate & rhythm Cardiac Studies: No Data to Display
[2020-08-15] MEDS: sodium chloride 0.9% 1,000 ML 30 ML IV (06:49)
--- NOTE | 2020-08-15 06:54 | W.PM.OPSUD ---
Surgery/Procedure H&P Update DATE OF PROCEDURE: August 15, 2020 DATE H&P PERFORMED: 07/27/20 H&P UPDATE INFORMATION: I have reviewed H&P completed within last 30 days, I have examined patient prior to procedure and No changes to prior documentation PREOP DIAGNOSIS: Vagal nerve stimulator generator end of service PRIMARY INDICATION FOR PROCEDURE: Vagal nerve stimulator generator end of service PLANNED PROCEDURE: Operation Date: 08/15/20 07:00 Proposed Procedures p Vagus nerve battery exchange(Not Applicable) - South Bone MD
[2020-08-15] MEDS: midazolam 1 mg/mL INJ 2 mL 2 MG IVP (06:59)
[2020-08-15] MEDS: lidocaine 1% INJ 20 mL SUBCUT (08:04)
--- NOTE | 2020-08-15 08:45 | P.OP_ITS ---
Operative Report Date of procedure: August 15, 2020 Pre-op Diagnosis: Vagal nerve stimulator generator end of service Post-op diagnosis: same Procedure Done: Vagal nerve stimulator generator exchange Specimens removed/disposition: Old vagal nerve generator removed intact Pathology: none sent Surgeon: South Bone Anesthesia: MAC and Local Complications: None Condition: stable Disposition: same day Brief History: 30-year-old female with a vagal nerve stimulator in place since 2014. Generator is now at end of service. Generator replacement has been recommended by our neurological service. Details and risk of the procedure were carefully and frankly discussed with Ms. Artis. Appropriate consents have been reviewed and signed. Procedure: Ms. Artis was appropriately positioned and sterilely prepped and draped. IV consicious sedation was given with anesthesia monitoring. 1% lidocaine was infiltrated through the prior generator insertion incision site. # 15 scalpel blade was used to incise the skin down to subcutaneous layer. Subsequently, using sharp and blunt dissection the pseudocapsule to the old generator was reached and opened with a scalpel blade. This area was then enhanced utilizing Metzenbaum scissors with care taken not to injure the pacing leads. Once the pocket was adequate opened, hemostats were utilized to deliver the old generator. Set screw was released and the lead was removed and inserted properly into the new generator with set screw then secured. On table interrogation was then performed. Appropriate parameters returned and threshold settings confirmed. The old generator was removed from the field. The incision was irrigated with antibiotic solution. Hemostasis was confirmed. The new generator was placed back into the old subcutaneous pocket. The wound was then closed in 2 layers of 3-0 Vicryl suture. Skin was closed in a subcuticular manner with 4-0 undyed Vicryl suture. A 2 layer pressure dressing was then applied. The entire system was again interrogated and appropriate parameters again obtained. Ms. Artis tolerated procedure well and was taken to the recovery room in stable condition. I did vocational rehabilitation counselor with her mother at the completion of the procedure. Generator: Model Sentiva serial number: [id number] Frequency: 10 Hz pulse width: 250 on time: 14 seconds off time: 1.1 minutes duty: 23% Lead impedance: 2933 ohms auto stimulation threshold: 40%
[2020-08-15] MEDS: ceFAZolin 1,000 mg SDV 1000 MG IRRIGATION (08:53)
[2020-08-15 09:11] VITALS: BP 138/89; PULSE 77; RESP 18; TEMP 36.1; O2SAT 95
[2020-08-15 09:34] VITALS: BP 119/90; PULSE 64; RESP 18; O2SAT 100
--- NOTE | 2020-08-15 15:45 | ANE.PACU2 ---
Inpatient post-anesthesia follow up: Airway intact: Yes Vital signs: Temperature 97.0 F Pulse Rate 64 Respiratory Rate 18 Blood Pressure 119/90 Pulse Oximetry 100 Oxygen Delivery Me thod Room Air Oxygen Flow Rate Fraction of Inspir ed Oxygen Nausea and vomiting: No Pain level: 2 Mental status: Baseline
== END 2020-08-15 09:46 | disposition home or self-care (01) ==
PROVIDERS: Anesthesiology; Visit Provider Thoracic Surgery (Cardiothoracic Vascular Surgery)
PROC: (CPT 61885; principal; 2020-08-15 07:00)
DX: Z45.42 Encounter for adjustment and management of neurostimulator (principal); E66.01 Morbid (severe) obesity due to excess calories; Z68.42 Body mass index [BMI] 45.0-49.9, adult; Z87.891 Personal history of nicotine dependence; F41.1 Generalized anxiety disorder; F43.12 Post-traumatic stress disorder, chronic; G40.909 Epilepsy, unspecified, not intractable, without status epilepticus
CPT/HCPCS: 61886; 36415; 71046; 80048; 81001; 81025; 84703; 85025; 96374; C1767; J0690; J1100; J2250; J2405; J2704; J3010; J3490; J7030

== ENCOUNTER 2020-08-19 23:10 | Emergency (ER) | payer SELFPAY ==
[2020-08-19 23:13] VITALS: BP 141/86; PULSE 66; RESP 18; TEMP 36.5; O2SAT 100; BMI 49.9
--- NOTE | 2020-08-19 23:25 | W.ED.WOUNDLC ---
HPI - Wound/Laceration General: Chief Complaint: Wound/Laceration Stated Complaint: post surgery wound issue Time Seen by Provider: 08/19/20 23:18 History of Present Illness: HPI narrative: Patient felt that her recent postop wound opened up when she was handling a child at work that was difficult to handle. Mild bleeding. No glue or adhesive is in place patient says. Onset (ago): minute(s) Location: chest (From recent surgery left upper chest) Place: work Patient tetanus UTD: Yes Context: accidental Associated symptoms: Reports no associated symptoms; Denies chills or fever(s) Review of Systems Narrative: Patient states wound bled a little bit she comes in to get evaluated Const: Denies: fever(s) or chills Skin/Breast: Reports: other (Recent wound broke open as patient states- contact with a child) Psych: Denies: anxiety or depression [facility] PFSH: Medical History (Updated 08/19/20 @ 23:24 by JAMAL Smith) Cellulitis Cholecystitis with cholelithiasis Seizure Surgical History H/O oral surgery H/O rotator cuff surgery H/O shoulder surgery History of dental surgery Social History Smoking and tobacco status: former smoker Current gender identity: Female Female Reproductive History: Date of last menstrual period: 08/12/20 Physical Exam Const: COMMON NORMALS: no acute distress Psych: COMMON NORMALS: mental status grossly normal Skin: OTHER: Wound on left upper chest shows mild separation 1 to 2 mm at most no active bleeding no erythema to the wound noted. Went ahead and and closed with Steri-Strips Course Vital Signs: Vital signs: Vital Signs Temperature 97.7 F 08/19/20 23:13 Pulse Rate 66 08/19/20 23:13 Respiratory Rate 18 08/19/20 23:13 Blood Pressure 141/86 08/19/20 23:13 Pulse Oximetry 100 08/19/20 23:13 Discharge Plan Discharge Patient Disposition: Home Clinical Impression: Postoperative dehiscence of skin wound Qualifiers: Encounter type: initial encounter Qualified Code(s): T81.31XA - Disruption of external operation (surgical) wound, not elsewhere classified, initial encounter Condition: Stable Prescriptions: No Action lamotrigine 200 mg tablet 200 mg PO BID Qty: 60 RF: 5 primidone 250 mg tablet 250 mg PO BID Qty: 60 RF: 5 Keflex 500 mg capsule 500 mg PO TID Qty: 7 RF: 0 hydrocodone-acetaminophen 5-325 mg tablet 1 tab PO Q6H PRN (Reason: pain) Qty: 14 RF: 0 trazodone 50 mg tablet 100 mg PO BEDTIME PRN (Reason: Sleep) RF: 0 zonisamide 100 mg capsule 200 mg PO BID RF: 0 duloxetine [Cymbalta] 30 mg capsule,delayed release(DR/EC) 30 mg PO QAM RF: 0 duloxetine [Cymbalta] 60 mg capsule,delayed release(DR/EC) 60 mg PO QAM RF: 0 hydrocodone-acetaminophen 5-325 mg tablet 1 tab PO Q6H PRN (Reason: pain) Qty: 15 RF: 0 Discharge Orders: Discharge ED (Routine); Ordered 08/19/20 Ordered By: Shahid Shipley Discharge Diet: Usual diet Discharge Activity: Resume usual activity Activity Restrictions/Additional Instructions: Leave Steri-Strips in place since they fall off naturally. Watch for signs and symptoms of infection. Patient did have to leave work early tonight to come into the ER to get this wound taken care of is able return back to work tomorrow. Stand Alone Forms: Work/School Release Coding Level of Care Code ED Administrative Analyst for Cordelia Loja
[2020-08-19 23:32] VITALS: BP 144/97; PULSE 68; RESP 16; TEMP 36.5; O2SAT 97
== END 2020-08-19 23:34 | disposition home or self-care (01) ==
PROVIDERS: Emergency Provider Nurse Practitioner Family
DX: T81.31XA Disruption of external operation (surgical) wound, not elsewhere classified, initial encounter (principal); Z87.891 Personal history of nicotine dependence
CPT/HCPCS: 99281

== ENCOUNTER → 2020-09-27 14:13 | Outpatient (BNVA) | payer OTHER, SELFPAY | PROVIDERS: Visit Provider Nurse Practitioner Family | DX: Z20.828 Contact with and (suspected) exposure to other viral communicable diseases (principal) | CPT/HCPCS: 87635 ==

== ENCOUNTER → 2021-01-10 13:03 | Outpatient (BNVA) | payer SELFPAY | PROVIDERS: Visit Provider Specialist | DX: F44.5 Conversion disorder with seizures or convulsions (principal); F43.12 Post-traumatic stress disorder, chronic; F41.1 Generalized anxiety disorder; F33.2 Major depressive disorder, recurrent severe without psychotic features; Z96.82 Presence of neurostimulator | CPT/HCPCS: 95971; 99214 ==

== ENCOUNTER → 2022-10-09 12:15 | Outpatient (BNVA) | payer SELFPAY | PROVIDERS: Visit Provider Nurse Practitioner Family | DX: Z20.2 Contact with and (suspected) exposure to infections with a predominantly sexual mode of transmission (principal) | CPT/HCPCS: 81000; 87491; 87591; 87661 ==